=== PATIENT | male | born 1985 | race Caucasian/White ===

== ENCOUNTER 2016-11-26 11:04 | Emergency (ER) | payer OTHER ==
[2016-11-26 11:35] VITALS: BP 145/81; PULSE 93; RESP 18; TEMP 97.9; O2SAT 95
--- NOTE | 2016-11-26 12:50 | UCPHY ---
H & P Time Seen by Provider: 11/26/16 12:18 Patient Type: Established HPI/ROS: HPI Bleeding from hemorrhoids. 31-year-old male by private vehicle. Reports that he developed a hemorrhoid last night and started bleeding from what he thinks is hemorrhoid last night. He complains of some pain to the anus area that is worse with sitting. Reports otherwise he does not have significant pain. No fever. No other complaint. ROS: Constitutional: No fever, no chills. No weakness. Eyes: No discharge. No changes in vision. ENT: No sore throat. No nasal congestion or rhinorrhea. Respiratory: No cough. No shortness of breath. Cardiac: No chest pain, no palpitations. Gastrointestinal: No abdominal pain, no vomiting, no diarrhea. Genitourinary: No hematuria. No dysuria or increased frequency with urination. Musculoskeletal: No back pain. No neck pain. No myalgias or arthralgias. Skin: No rashes. Neurological: No headache. No focal weakness or altered sensation. Past medical history: Irritable bowel syndrome. Exercise-induced asthma, obesity, neuropathy and toes. Social history: Here by himself. Physical Exam: General Appearance: Alert, no distress. Obese habitus. This patient is responding to questions appropriately and in full sentences. This patient appears well-hydrated and well-nourished. Eyes: Pupils equal and round no pallor or injection. No lid edema, erythema or injection. Rectal exam: He has a external hemorrhoid at the 3 o'clock position that has perforated and has about a 2 mm hole in it. There is no significant bleeding at this time. There is some mild thrombosis just inside this opening. It does not appear inflamed or infected. It is still draining a small amount of venous blood. Neurological: Motor sensory function is grossly intact. Cranial nerves are normal. Gait is normal. Skin: Warm and dry, no rashes. Musculoskeletal: Neck is supple and nontender. Extremities are symmetrical. All joints range without pain or impingement. Psychiatric: No agitation. No depression. Database: EKG: Imaging: Procedures: Emergency department course: After physical exam, plan of management was discussed. I will place him on docusate sodium. He states that he has used Metamucil in the past and has had limited results with this regarding treatment of constipation. He will then follow up with General surgery for re-evaluation and further management. I discussed return to Urgent Care precautions with him. General hemorrhoid management was reviewed with him. All of his questions were answered. He feels comfortable with this plan. He was discharged in good condition. Differential Diagnosis: The differential diagnosis on this patient includes but is not limited to external hemorrhoid. Incarcerated hemorrhoid, rectal fissure unlikely This represents a partial list of diagnoses considered. These considerations are based on history, physical exam, past history and reassessment. Smoking Status: Never smoked Constitutional: Initial Vital Signs Temperature (C) 36.6 C 11/26/16 11:32 Heart Rate 93 11/26/16 11:32 Respiratory Rate 18 11/26/16 11:32 Blood Pressure 145/81 H 11/26/16 11:32 O2 Sat (%) 95 11/26/16 11:32 O2 Delivery Mode Room Air Allergies/Adverse Reactions: hydrocodone Allergy (Verified 07/19/16 11:27) morphine Allergy (Verified 07/19/16 11:27) oxycodone HCl [From OxyContin] Allergy (Verified 07/19/16 11:27) Home Medications: Medication Instructions Recorded Albuterol Hfa Anes Only 07/19/16 Claritin 07/19/16 Multi-Day Vitamins 07/19/16 Vitamin B-12 07/19/16 Docusate Sodium [Colace 100 MG (*)] 100 mg PO TID #20 cap 11/26/16 MDM/Departure - Depart Disposition: Home, Routine, Self-Care Clinical Impression: Hemorrhoids Condition: Good Instructions: Hemorrhoids (ED) Additional Instructions: Read and follow provided instructions. Follow-up with General surgery, Dr. Aki Gomez shows or Dr. Rehan Lambert this week for re-evaluation and further management. Take medication as prescribed. Return to the emergency department for worsening pain, bleeding or other serious concerns. Prescriptions: Docusate Sodium [Colace 100 MG (*)] 100 mg PO TID #20 cap Referrals: Aki Gomez MD [Medical Doctor] - As per Instructions Rehan Lambert MD [Medical Doctor] - As per Instructions - PQRS PQRS Measurement: Not applicable.
[2016-11-26] MEDS ORDERED: DOCUSATE SODIUM 100 MG CAP PO ONE (12:52)
== END 2016-11-26 13:00 | disposition home or self-care (01) ==
LOC: CED 11:04
DX: K62.5 Hemorrhage of anus and rectum (principal); J45.990 Exercise induced bronchospasm; E66.9 Obesity, unspecified; K58.9 Irritable bowel syndrome, unspecified; K64.9 Unspecified hemorrhoids; Z68.42 Body mass index [BMI] 45.0-49.9, adult
CPT/HCPCS: 99214-PO; G0463-PO

== ENCOUNTER 2016-12-18 09:52 | Emergency (ER) | payer OTHER ==
[2016-12-18 10:23] VITALS: RESP 18; TEMP 97.3
--- NOTE | 2016-12-18 10:30 | EDPHY ---
H & P Time Seen by Provider: 12/18/16 10:28 HPI/ROS: Chief complaint. Fall on ice HPI. Slip and fall on the ice 3 days ago. Injured his left chest and then has subsequently noticed some blood in his urine on test strips. He cannot see blood in his urine though thinks it may be slightly sunil colored. He had had some bubbles in his urine for several months so we ordered some test strips on line and the test strips show blood and a high specific gravity. He is otherwise urinating okay. Did not strike his head or lose consciousness. Some mild right-sided neck pain ROS Constitutional. no fever/chills, no weakness Eyes. no problems with vision ENT. no sore throat, no nasal drainage Cardiovascular. Left chest wall pain Respiratory. no shortness of breath, no cough Abdominal. no abdominal pain, no nausea/vomiting, no diarrhea . Blood in urine on test strips MS. no calf pain/swelling, no neck/back pain, no joint pain Skin. no rash Lymph. no swollen glands Neuro. no headache, no dizziness, no difficulty walking or with speech Past Medical/Surgical History: Asthma, IBS, neuropathy, hernia, hemorrhoids Social History: Single, nonsmoker, no alcohol Smoking Status: Never smoked Physical Exam: General Appearance: Alert well-developed male mild distress vital signs stable Eyes: Pupils equal and round no pallor or injection. ENT, Mouth: Mucous membranes are moist. Respiratory: There are no retractions, lungs are clear to auscultation. Cardiovascular: Regular rate and rhythm. Gastrointestinal: Abdomen is soft and nontender, no masses, bowel sounds normal. Neurological: Awake and alert, sensory and motor exams grossly normal. Skin: Warm and dry, no rashes. Musculoskeletal: Tenderness to the left chest wall. Without deformity. No neck pain Extremities symmetrical, full range of motion. Psychiatric: Patient is oriented X 3, there is no agitation. Constitutional: Initial Vital Signs Temperature (C) 36.3 C 12/18/16 10:17 Heart Rate 95 12/18/16 10:17 Respiratory Rate 18 12/18/16 10:17 Blood Pressure 127/97 H 12/18/16 10:17 O2 Sat (%) 98 12/18/16 10:17 O2 Delivery Mode Room Air Allergies/Adverse Reactions: hydrocodone Allergy (Verified 07/19/16 11:27) morphine Allergy (Verified 07/19/16 11:27) oxycodone HCl [From OxyContin] Allergy (Verified 07/19/16 11:27) Home Medications: Medication Instructions Recorded Albuterol Hfa Anes Only 07/19/16 Claritin 07/19/16 Multi-Day Vitamins 07/19/16 Vitamin B-12 07/19/16 Docusate Sodium [Colace 100 MG (*)] 100 mg PO TID #20 cap 11/26/16 Medical Decision Making - Diagnostics Imaging: Chest x-ray interpreted by me shows no evidence of fracture, pneumothorax CT abdomen with IV contrast discussed with Dr. Naik and reviewed by me shows an enlarged spleen but otherwise no evidence for trauma. Kidney appears normal ED Course/Re-evaluation: There is microscopic blood in the urine. Patient has been told he has had blood in his urine before but has never been evaluated. He would like it evaluated today IV normal saline with CBC and chemistry obtained. CT abdomen and pelvis with IV contrast ordered Re-evaluation at 2:20 p.m. and patient is stable. He and I discussed imaging study results laboratory evaluation, treatment plan including criteria for return importance of follow-up and further evaluation. He expresses understanding and agreement Differential Diagnosis: I considered rib fracture, pneumothorax, kidney with injury. Patient does have very slight microscopic hematuria - Data Points Laboratory Results: Laboratory Results 12/18/16 12:17 12/18/16 12:17 12/18/16 12/18/16 12:17 11:00 WBC 10.76 H 10^3/uL (3.80-9.50) RBC 5.29 10^6/uL (4.40-6.38) Hgb 14.6 g/dL (13.7-17.5) Hct 44.3 % (40.0-51.0) MCV 83.7 fL (81.5-99.8) MCH 27.6 L pg (27.9-34.1) MCHC 33.0 g/dL (32.4-36.7) RDW 14.7 % (11.5-15.2) Plt Count 211 10^3/uL (150-400) MPV 11.2 fL (8.7-11.7) Neut % (Auto) 70.7 % (39.3-74.2) Lymph % (Auto) 19.3 % (15.0-45.0) [place] % (Auto) 5.4 % (4.5-13.0) Eos % (Auto) 2.6 % (0.6-7.6) Baso % (Auto) 0.7 % (0.3-1.7) Nucleat RBC Rel Count 0.0 % (0.0-0.2) Absolute Neuts (auto) 7.61 H 10^3/uL (1.70-6.50) Absolute Lymphs (auto) 2.08 10^3/uL (1.00-3.00) Absolute Monos (auto) 0.58 10^3/uL (0.30-0.80) Absolute Eos (auto) 0.28 10^3/uL (0.03-0.40) Absolute Basos (auto) 0.07 10^3/uL (0.02-0.10) Absolute Nucleated RBC 0.00 10^3/uL (0-0.01) Immature Gran % 1.3 H % (0.0-1.1) Immature Gran # 0.14 H 10^3/uL (0.00-0.10) Sodium 141 mEq/L (134-144) Potassium 4.3 mEq/L (3.5-5.2) Chloride 102 mEq/L (97-110) Carbon Dioxide 26 mEq/l (22-31) Anion Gap 13 mEq/L (8-16) BUN 13 mg/dL (7-23) Creatinine 0.8 mg/dL (0.7-1.3) Estimated GFR > 60 Glucose 92 mg/dL (70-100) Calcium 9.3 mg/dL (8.5-10.4) Urine Color YELLOW Urine Appearance CLEAR Urine pH 5.5 (5.0-7.5) Ur Specific Cando 1.025 (1.002-1.030) Urine Protein NEGATIVE (NEGATIVE) Urine Ketones NEGATIVE (NEGATIVE) Urine Blood 2+ H (NEGATIVE) Urine Nitrate NEGATIVE (NEGATIVE) Urine Bilirubin NEGATIVE (NEGATIVE) Urine Urobilinogen 0.2 EU (0.2-1.0) Ur Leukocyte Esterase NEGATIVE (NEGATIVE) Urine RBC 1-3 /hpf (0-3) Urine WBC 1-3 /hpf (0-3) Ur Epithelial Cells 1+ /lpf (NONE-1+) Urine Bacteria 2+ H /hpf (NONE SEEN) Urine Mucus 2+ H /lpf (NONE-1+) Ur Culture Indicated? INDICATED H (NI) Urine Glucose NEGATIVE (NEGATIVE) Medications Given: Discontinued Medications Sodium Chloride (Ns) 1,000 mls @ 0 mls/hr IV EDNOW ONE PRN Reason: Wide Open Stop: 12/18/16 11:58 Last Admin: 12/18/16 12:15 Dose: 1,000 mls Departure - Departure Disposition: Home, Routine, Self-Care Clinical Impression: Chest wall contusion Qualifiers: Encounter type: initial encounter Laterality: left Qualifier Code: (S20.212A) Contusion of left front wall of thorax, initial encounter Condition: Good Instructions: Contusion in Adults (ED) Additional Instructions: Tylenol or Advil as needed for discomfort. Drink plenty of fluids and stay hydrated. I will give you the name of Urology for follow-up of continuing blood in urine Referrals: NONE *PRIMARY CARE P,. [Primary Care Provider] - As per Instructions Yuki Figueroa MD [Medical Doctor] - As per Instructions
--- NOTE | 2016-12-18 11:03 | DX ---
Chest, PA and Lateral Upright Views, 3 Views Total, at 10:43 a.m. Clinical History: 31-year-old male who fell onto his left side, and complains of pain over the last 3 days. Comparison Study: None. Findings: The cardiac and mediastinal silhouette is normal in size. There is no focal infiltrate, ate lectasis, pleural effusion, peripheral interstitial edema, or pneumothorax. There is no rib fracture appreciated. The thoracic vertebral body heights are maintained. The trachea is midline. Impression: No acute abnormality identified.
[2016-12-18 11:09] LABS: COLOR YELLOW; LEUKOCYTE ESTERASE,URINE NEGATIVE (NEGATIVE); NITRITE,URINE NEGATIVE (NEGATIVE); PH,URINE 5.5 (5.0-7.5)
[2016-12-18 11:41] LABS: BACTERIA 2+ /hpf (NONE SEEN); MUCUS 2+ /lpf (NONE-1+)
[2016-12-18] MEDS ORDERED: NS 1,000 ML IV ONE (11:57)
[2016-12-18 12:27] LABS: % IMMATURE GRANULYOCYTES 1.3 % (0.0-1.1); ABSOLUTE IMMATURE GRANULOCYTES 0.14 10^3/uL (0.00-0.10); ADD DIFF? NO; ADD MORPH? NO; ADD SCAN? NO; ATYPICAL LYMPHOCYTE FLAG 0 (0-99); FRAGMENT RBC FLAG 0 (0-99); HEMATOCRIT 44.3 % (40.0-51.0); HEMOGLOBIN 14.6 g/dL (13.7-17.5); LEFT SHIFT FLG 10 (0-99); LIPEMIA HEMOLYSIS FLAG 80 (0-99); MEAN CELL HEMOGLOBIN 27.6 pg (27.9-34.1); MEAN CELL VOLUME 83.7 fL (81.5-99.8); MEAN PLATELET VOLUME 11.2 fL (8.7-11.7); PLATELET CLUMPS FLAG 0 (0-99); PLATELET COUNT 211 10^3/uL (150-400); RED BLOOD CELL COUNT 5.29 10^6/uL (4.40-6.38); RED CELL DISTRIBUTION WIDTH 14.7 % (11.5-15.2)
[2016-12-18] MEDS ORDERED: IOPAMIDOL (ISOVUE-300) 100 ML BTL IV ONE (12:35)
[2016-12-18 12:45] LABS: ANION GAP 13 mEq/L (8-16); CALCIUM 9.3 mg/dL (8.5-10.4); CARBON DIOXIDE 26 mEq/l (22-31); CHLORIDE 102 mEq/L (97-110); CREATININE 0.8 mg/dL (0.7-1.3); GLOMERULAR FILTRATION RATE > 60; GLUCOSE 92 mg/dL (70-100); POTASSIUM 4.3 mEq/L (3.5-5.2); SODIUM 141 mEq/L (134-144)
[2016-12-18 14:46] VITALS: BP 148/95; PULSE 85; O2SAT 95
--- NOTE | 2016-12-18 15:22 | CT ---
"Contrast-Enhanced CT Scan of the Abdomen and Pelvis Clinical History: 31-year-old male with right rib pain, minor left hip pain, and a history of trauma. The patient also has an elevated white blood cell count. Technique: Neither oral nor retrograde rectal contrast was administered. The patient received 99 mL o f IV Isovue-300 without complication and a multidetector helical CT scan was obtained from the lung b ases inferiorly through the proximal femora with images reformatted at 5.00 and 1.25 mm increments, a nd reviewed at a variety of window/level settings. Parasagittal and paracoronal reconstructed images are reviewed on the workstation. The DFOV is 49.0 cm. A dose reduction protocol was used. Comparison Study: None. Findings Contrast-Enhanced CT Scan of the Abdomen: The lung bases are clear. There is no pulmonary contusion, basilar pneumothorax, pleural effusion, or pericardial effusion. There is no evidence of a displaced rib fracture. The lumbar vertebral body heights and posterior alignments are maintained. There is no spinous process or transverse process fracture observed. The liver is at the upper limits of normal i n size, measuring 17.6 cm in cephalocaudal diameter. There is global diminished attenuation, consiste nt with fatty infiltration. The spleen is enlarged, measuring 16.1 x 16.2 x 6.1 cm. There is no focal splenic mass. There is no ascites. The gallbladder, pancreas, adrenal glands, and the kidneys are no rmal. Moderate centripetal and subcutaneous obesity is present. There is mild constipation. There is no abnormal small bowel dilatation. There is a normal appearance of the appendix. The abdominal aorta and the IVC are normal in caliber. Contrast-Enhanced CT Scan of the Pelvis: The urinary bladder is not distended. The prostate gland and the seminal vesicles are unremarkable. There is no free fluid. There are shotty bilateral inguinal l ymph nodes. Each femoral head is well-seated within its respective acetabulum. There is no evidence o f a hip fracture. The ischiopubic rami are intact. There is no symphysis pubis or SI joint diastasis. The sacrum is intact. Impression: 1. There is no acute intraabdominal visceral injury. 2. Splenomegaly with obesity and hepatic steatosis. Results were discussed with Dr. Gutierrez Adan. A test result has been communicated to a licensed care provider and documented in the [employer] | Critical Result system on 12/18/2016 14:19, Message ID [id number]."
== END 2016-12-18 14:39 | disposition home or self-care (01) ==
LOC: CED 09:52
DX: S20.212A Contusion of left front wall of thorax, initial encounter (principal); R31.9 Hematuria, unspecified
CPT/HCPCS: 71020-PO; 74177-PO; 80048-PO; 81003-PO; 81015-PO; 85025-PO; 96360-PO; G0463-PO; Q9967